=== PATIENT | male | born 1985 | race Caucasian/White ===

== ENCOUNTER 2023-10-22 23:26 | Emergency (ER) | payer OTHER, SELFPAY ==
[2023-10-22 23:33] VITALS: BP 146/114
[2023-10-22] MEDS: DUONEB 3 ML INH (23:40)
--- NOTE | 2023-10-23 00:13 | ED.GENMED ---
History of Present Illness
General
Chief Complaint: Breathing Problem
Source: patient
Exam Limitations: none
Time Seen by Provider: 10/23/23 00:09
Nursing documentation reviewed up to this point in time: agreed with
Travel History
Have you had any contact with someone who has COVID-19?: No
Do you have any symptoms of coronavirus? Fever > 100 degrees, chills, cough, shortness of breath, sore throat, loss of taste or smell, muscle aches, or headache?: No
History of Present Illness
History of Present Illness:
Patient with history of asthma, who utilizes albuterol inhaler at least once a day, presents ED secondary to worsening cough with shortness of breath, along with persistent nasal congestion this evening. Denies fever or chills. Denies chest pain.
Denies nausea or vomiting. Denies back pain. Denies leg pain or swelling. Patient states that he feels as though he has similar presentation, at least once a year.
Past History
Past History
ED Past Medical History: Asthma
ED Past Surgical History: None
Social History
Tobacco: Non-smoker
Alcohol: None
Drug: Marijuana
Personal:
Living: with family
Employment: Employed
Review of Systems
Review of Systems
Allergies reviewed?: Yes
All Other Systems: ROS reviewed and negative except as documented in HPI and ROS
Constitutional: Reports no symptoms
EENT: Reports other (Nasal congestion)
Respiratory: Reports cough and trouble breathing
Cardiac: Reports no symptoms
ABD/GI: Reports no symptoms
Musculoskeletal: Reports no symptoms
Skin: Reports no symptoms
Neurological: Reports no symptoms
Phy Exam
Physical Exam
Physical Exam:
Physical Exam
General: mild respiratory distress, not acutely ill. afebrile
Head: nc/at. eomi
Neck: supple. no range of motion.
Heart: s1/s2 regular rate and rhythm, no murmur. equal radial pulses.
Lungs: mild respiratory distress. mild expiratory wheezing noted bilaterally
Abdomen: normal bowel sounds. not tender.
Neuro: alert and oriented. no focal neurological deficits
Skin: no rash
Psychiatric: well kept. interactive and cooperative
Extremities: no edema. no calf tenderness.
Course
Orders/Labs/Results
Orders:
Orders
10/22/23 23:38
Ipratropium/Albuterol Sulfate [Duoneb] 3 ml .ROUTE .STK-MED ONE
10/22/23 23:40
Ipratropium/Albuterol Sulfate [Duoneb] 3 ml INH R NOW ONE
10/23/23 00:09
Prednisone [Deltasone] 50 mg PO NOW STA
Vital Signs
Initial and Last Documented VS:
Initial Vital Signs
Temp Pulse Resp BP Pulse Ox
98 F 114 28 146/114 98
10/22/23 23:33 10/22/23 23:33 10/22/23 23:33 10/22/23 23:33 10/22/23 23:33
Last Documented Vital Signs
Temp Pulse Resp BP Pulse Ox
98 F 82 22 138/80 98
10/22/23 23:33 10/23/23 00:15 10/23/23 00:15 10/23/23 00:15 10/23/23 00:15
MDM/Problems Addressed
MDM/Problems Addressed:
Patient reports significant improvement in symptoms after treatment with nebulizer treatment. History and exam consistent with likely an acute exacerbation of underlying asthma. Patient will be discharged home in stable condition, with
prescription for short course of prednisone, as well is referral to pulmonology for an outpatient consultation.
*Critical Care Note
Total Time (30-74mins, 75-104mins- exclusive of procedures): Not Applicable
ED Attending Note
-
Portions of this chart may have been created with voice recognition software.� Occasional wrong word or��sound alike� substitutions may have occurred due to the inherent limitations of voice recognition software.
Discharge Plan
Departure
Patient Disposition: Home (Routine Discharge)
Date of Disposition: 10/23/23
Time of Disposition: 00:14
Patient with high blood pressure during this ER visit?: Yes
Condition: Good
Discharge Problem:
Asthma exacerbation
Instructions: Asthma, Adult (DC)
Prescriptions:
New
prednisone 50 mg tablet
50 mg PO DAILY Qty: 2 0RF
No Action
albuterol sulfate [Proventil HFA] 90 MCG/PUFF HFA aerosol inhaler
1 puff inhalation Q4HPRN PRN (Reason: shortness of breath) Qty: 1 0RF
loratadine [Claritin] 10 mg Tablet
10 mg PO DAILY
budesonide-formoterol [Symbicort] 160-4.5 mcg/actuation HFA aerosol inhaler
2 puff inhalation BID Qty: 10.2 0RF
prednisone 20 mg tablet
60 mg PO DAILY Qty: 12 0RF
Referrals:
Shameka Arenas, [Active] -
Activity Restrictions/Additional Instructions:
As discussed, please follow-up with your primary care physician and/or referred warehouse pricing and inventory clerk for further evaluation and treatment. Your prescription has been sent electronically to [facility] pharmacy in [place].
Interventions
Interventions:
*Risk Screen - Suicide Last Done: 10/22/23 23:33
*General Assessment Last Done: 10/22/23 23:45
*Neglect/Abuse Screening Last Done: 10/22/23 23:33
ED- Fall Risk Assessment Last Done: 10/22/23 23:45
*ED COVID-19 Vaccine History Last Done: 10/22/23 23:45
*Nursing Disposition Last Done: 10/23/23 00:20
ED- Cardiac Assessment Last Done: 10/22/23 23:45
ED- Pulmonary Assessment Last Done: 10/23/23 00:07
Discharge Date and Time
Discharge Date/Time: 10/23/23 00:20
Print Language: TANZANIAN
[2023-10-23 00:15] VITALS: BP 138/80
[2023-10-23] MEDS: DELTASONE 50 MG PO (00:19)
== END 2023-10-23 00:20 | disposition home or self-care (01) ==
LOC: EMR 23:26
PROVIDERS: EMERGENCY PHYSICIAN Emergency Medicine; FAMILY PHYSICIAN Family Medicine
DX: J45.901 Unspecified asthma with (acute) exacerbation (principal); R03.0 Elevated blood-pressure reading, without diagnosis of hypertension; Z87.01 Personal history of pneumonia (recurrent); Z86.16 Personal history of COVID-19; Z91.013 Allergy to seafood
CPT/HCPCS: 99283; 94640

== ENCOUNTER 2024-04-29 04:15 | Emergency (ER) | payer OTHER, SELFPAY ==
[2024-04-29 04:15] VITALS: BMI 24.9
[2024-04-29 04:18] VITALS: BP 122/80
[2024-04-29] MEDS: DUONEB 3 ML INH (04:48)
[2024-04-29 04:52] VITALS: BP 121/80
[2024-04-29 05:00] VITALS: BP 106/81
--- NOTE | 2024-04-29 05:54 | ED.GENMED ---
History of Present Illness
<VASILIY Raphael - Last Filed: 04/29/24 06:17>
General
Chief Complaint: Breathing Problem
Source: patient
Time Seen by Provider: 04/29/24 05:53
Nursing documentation reviewed up to this point in time: agreed with
History of Present Illness
History of Present Illness:
Pt is a 39 yo M with a history of asthma who presents to the emergency room with an asthma exacerbation. Pt states that he began having wheezing, shortness of breath, and a dry cough. He states that he was sitting down and resting when the
exacerbation began. He reports that he used his albuterol inhaler twice at home without relief before coming in to the ED. Pt states that he has asthma attacks about once a day and uses his albuterol inhaler daily for relief. Pt denies SIMS, N/V,
chest pain, dizziness. Pt also reports having rhinorrhea. He states that he takes Claritin daily.
Pt states that he was referred to pulmonology previously and that he never followed-up with them. Pt states the last time he went to the ED for an asthma exacerbation was in October.
Past History
<VASILIY Raphael - Last Filed: 04/29/24 06:17>
Past History
ED Past Medical History: Asthma
ED Past Surgical History: None
Social History
Tobacco: Non-smoker
Alcohol: None
Drug: Marijuana
Personal:
Living: with family
Employment: Employed
Review of Systems
<VASILIY Raphael - Last Filed: 04/29/24 06:17>
Review of Systems
Allergies reviewed?: Yes
Constitutional: Reports no symptoms
EENT: Reports runny nose
Respiratory: Reports cough and other (wheezing )
Cardiac: Reports no symptoms
ABD/GI: Reports no symptoms
Musculoskeletal: Reports no symptoms
Skin: Reports no symptoms
Neurological: Reports no symptoms
Phy Exam
<[facility]acy [facility] - Last Filed: 04/29/24 06:17>
General Physical Exam
General Presentation: well appearing and no apparent distress
General age: appears stated age
General Skin: warm
General Habitus: normal
General Mental: alert
General Hydration: appears well hydrated
Cardiovascular Exam
Cardiovascular Exam: regular rate/rhythm
Pulmonary Exam
Pulmonary Exam: lungs clear and no cough
Scores
<Mora Ann DO - Last Filed: 04/29/24 06:24>
Heart Failure Risk
Heart Failure Risk Score: Not Applicable
Course
<[facility]acy [facility] - Last Filed: 04/29/24 06:17>
Orders/Labs/Results
Orders:
Orders
04/29/24 04:45
Ipratropium/Albuterol Sulfate [Duoneb] 3 ml .ROUTE .STK-MED ONE
04/29/24 04:48
Ipratropium/Albuterol Sulfate [Duoneb] 3 ml INH R NOW ONE
04/29/24 06:15
Prednisone [Deltasone] 50 mg PO NOW STA
Vital Signs
Initial and Last Documented VS:
Initial Vital Signs
Pulse Resp BP Pulse Ox
98 22 122/80 96
04/29/24 04:18 04/29/24 04:18 04/29/24 04:18 04/29/24 04:18
Last Documented Vital Signs
Pulse Resp BP Pulse Ox
98 22 106/81 97
04/29/24 04:18 04/29/24 04:18 04/29/24 05:00 04/29/24 05:16
<Mora Ann DO - Last Filed: 04/29/24 06:24>
Orders/Labs/Results
Orders:
Orders
04/29/24 04:45
Ipratropium/Albuterol Sulfate [Duoneb] 3 ml .ROUTE .STK-MED ONE
04/29/24 04:48
Ipratropium/Albuterol Sulfate [Duoneb] 3 ml INH R NOW ONE
04/29/24 06:15
Prednisone [Deltasone] 50 mg PO NOW STA
Vital Signs
Initial and Last Documented VS:
Initial Vital Signs
Pulse Resp BP Pulse Ox
98 22 122/80 96
04/29/24 04:18 04/29/24 04:18 04/29/24 04:18 04/29/24 04:18
Last Documented Vital Signs
Pulse Resp BP Pulse Ox
98 22 106/81 97
04/29/24 04:18 04/29/24 04:18 04/29/24 05:00 04/29/24 05:16
<VASILIY Raphael - Last Filed: 04/29/24 06:17>
*Critical Care Note
Total Time (30-74mins, 75-104mins- exclusive of procedures): Not Applicable
<Mora Ann DO - Last Filed: 04/29/24 06:24>
*Pulse Oximetry
Patient hypoxic: no
ED Attending Note
<VASILIY Raphael - Last Filed: 04/29/24 06:17>
-
Portions of this chart may have been created with voice recognition software.� Occasional wrong word or��sound alike� substitutions may have occurred due to the inherent limitations of voice recognition software.
<Mora Ann DO - Last Filed: 04/29/24 06:24>
ED Attending Note
Patient seen and examined by attending physician: Yes
I performed the substantive portion of visit, reviewed & personally made and approve the management plan that is documented in note by myself or RODGER.: Yes
ED Attending Note:
This is a 39-year-old male who has history of asthma with sporadic exacerbations, previous ED visits for similar complaints of asthma exacerbation most recently October of this year and prior to that November 2022. He complains of several month history of
chronic nasal congestion, chronic clear rhinitis, intermittent cough and wheezing. He had been prescribed a maintenance inhaled steroid by his PCP which he used over the summer but then discontinued this at the end of the summer. He does have a
'fresh' steroid inhaler at home but has not resumed this as yet.
He is chronically maintained on daily Claritin. He complains of increased nasal congestion over the past few weeks and increased cough, worse tonight and unrelieved with albuterol inhaler.
He has not had a fever nor chills. Cough has been dry, nonproductive.
He does report multiple pets at home. No recent travel. He does not smoke.
Moderate wheezing noted initially which has promptly resolved after DuoNeb nebulizer treatment in the ED. Currently feeling markedly improved after nebulizer treatment.
GENERAL: Alert , in no apparent distress. Moderate nasal congestion, frequently blowing his nose. Multiple use tissues piled on bedside table.
EYE: pupils equal and reactive. anicteric
NECK: Supple, nontender, no meningismus, no significant adenopathy.
ENT: posterior pharynx is without injection no edema, moderate clear postnasal drip is noted, oral mucosa is moist. TM clear b/l, nares have moderately boggy pale turbinates with moderate clear rhinorrhea.
CARDIAC: Regular rate and rhythm. no murmur.
LUNGS: Clear breath sounds bilaterally, no acute respiratory distress, no wheezes/rales/rhonchi
ABDOMEN: Soft, nondistended, without focal tenderness, normoactive BS.
NEUROLOGICAL: Alert and oriented x3, no focal neuro deficits. Gait is soto and steady.
SKIN: Warm and dry, normal color, skin intact. No rash.
MUSCULOSKELETAL: No C/C/E. peripheral pulses are full and equal b/l. No palpable tenderness.
PSYCH: Normal and appropriate interaction.
Patient presents with what I suspect is mild chronic asthma with acute exacerbation along with allergic rhinitis.
He is afebrile and nothing on exam nor history to suggest acute bacterial infection.
Will initiate tapering course of prednisone and recommend he resume his daily inhaled corticosteroid along with continuing daily Claritin.
Will add Singulair to take at nighttime as well as daily Flonase nasal spray.
Recommend he continue albuterol inhaler for as needed wheezing.
Prompt follow-up with PCP for recheck and patient will be referred to business services officer as well.
Return precautions discussed.
Discharge Plan
Departure
Patient Disposition: Home (Routine Discharge)
Date of Disposition: 04/29/24
Time of Disposition: 06:16
Patient with high blood pressure during this ER visit?: No
Condition: Good
Discharge Problem:
Asthma exacerbation, Allergic rhinitis
Instructions: Environmental allergies in adults, Asthma, Adult (DC)
Prescriptions:
New
prednisone 10 mg Tablet
See Rx Instructions .ROUTE .COMPLEX Qty: 30 0RF
Rx Instructions:
Take By Mouth:
40 mg daily x3 days, 30 mg daily x3 days,
20 mg daily x3 days, 10 mg daily x3 days.
fluticasone propionate 50 mcg/actuation spray,suspension
2 spray intranasal DAILY Qty: 16 1RF
montelukast [Singulair] 10 mg tablet
10 mg PO HS Qty: 30 1RF
No Action
albuterol sulfate [Proventil HFA] 90 MCG/PUFF HFA aerosol inhaler
1 puff inhalation Q4HPRN PRN (Reason: shortness of breath) Qty: 1 0RF
loratadine [Claritin] 10 mg Tablet
10 mg PO DAILY
budesonide-formoterol [Symbicort] 160-4.5 mcg/actuation HFA aerosol inhaler
2 puff inhalation BID Qty: 10.2 0RF
prednisone 20 mg tablet
60 mg PO DAILY Qty: 12 0RF
prednisone 50 mg tablet
50 mg PO DAILY Qty: 2 0RF
Referrals:
Shameka Arenas, DO [Active] - Call in 1-3 days for appt
Jeff Bentley, [Family Provider] - Call in 1-3 days for appt
Activity Restrictions/Additional Instructions:
Continue daily Claritin.
Resume daily steroid inhaler.
Continue albuterol inhaler, 2 puffs every 4 hours as needed for cough, wheezing.
For asthma exacerbation and allergic rhinitis I am adding a tapering course of oral prednisone as well as Flonase nasal spray and Singulair.
Interventions
Interventions:
*Risk Screen - Suicide Last Done: 04/29/24 04:18
*General Assessment Last Done: 04/29/24 04:53
*Neglect/Abuse Screening Last Done: 04/29/24 04:18
*ED COVID-19 Vaccine History Last Done: 04/29/24 04:53
ED- Cardiac Assessment Last Done: 04/29/24 04:50
ED- Pulmonary Assessment Last Done: 04/29/24 04:50
Discharge Date and Time
Print Language: FRENCH
[2024-04-29 06:53] VITALS: BP 138/78
[2024-04-29] MEDS: DELTASONE 50 MG PO (06:53)
== END 2024-04-29 06:54 | disposition home or self-care (01) ==
LOC: EMR 04:15
PROVIDERS: EMERGENCY PHYSICIAN Emergency Medicine; FAMILY PHYSICIAN Family Medicine
DX: J45.901 Unspecified asthma with (acute) exacerbation (principal); J34.89 Other specified disorders of nose and nasal sinuses; Z87.01 Personal history of pneumonia (recurrent); Z86.16 Personal history of COVID-19; Z91.013 Allergy to seafood
CPT/HCPCS: 99283; 94640